=== PATIENT | female | born 1945 | race Caucasian/White ===

== ENCOUNTER → 2017-06-13 | Outpatient (CLI) | payer MEDICARE, BC ==
--- NOTE | 2017-06-13 17:30 | RAD ---
DATE: June 13, 2017 EXAM: MAMMO CHARLIE SCREEN RT HISTORY: Routine Screening, prior left mastectomy COMPARISON: April 13, 2015 TECHNIQUE: Routine digital mammographic views were obtained. This study was interpreted with the benefit of Computerized Aided Detection (CAD). The breast parenchyma is dense, which could reduce the sensitivity of mammography. Breast parenchyma level density D. FINDINGS: There is no suspicious findings. IMPRESSION: Negative examination. BI-RADS CATEGORY: 1 NEGATIVE RECOMMENDED FOLLOW-UP: 12M 12 MONTH FOLLOW-UP PQRS compliance statement: Patient information was entered into a reminder system with a target due date June 13, 2018 for the next mammogram. Mammography is a sensitive method for finding small breast cancers, but it does not detect them all and is not a substitute for careful clinical examination. A negative mammogram does not negate a clinically suspicious finding and should not result in delay in biopsying a clinically suspicious abnormality. "Our facility is accredited by the [employer] Mammography [employer]."
== END | disposition home or self-care (01) ==
LOC: MAMMO 12:29
PROVIDERS: ATTEND Nurse Practitioner Family
DX: Z12.31 Encounter for screening mammogram for malignant neoplasm of breast (principal); Z90.12 Acquired absence of left breast and nipple
CPT/HCPCS: 77063; G0202; 77067

== ENCOUNTER → 2017-09-26 | Outpatient (CLI) | payer BC, MEDICARE ==
--- NOTE | 2017-09-27 08:39 | RAD ---
Cervical spine, 3 views, 09/26/2017: History: Chronic neck pain The bony structures are demineralized. There is moderate disc space narrowing with endplate sclerosis and marginal spurring at C5-6. There is a lesser degree of disc space narrowing and spurring at C4-5 and C6-7. There are moderate degenerative changes involving scattered facet joints bilaterally. No acute fracture or subluxation is evident. No prevertebral soft tissue swelling is seen. IMPRESSION: 1. Moderate multilevel degenerative change. 2. No acute bony abnormality is detected.
--- NOTE | 2017-09-27 08:40 | RAD ---
Right shoulder, 3 views, 09/26/2017: History: Neck and right shoulder pain No fracture or dislocation is identified. There is mild degenerative change at the AC joint. The periarticular soft tissues are unremarkable. IMPRESSION: 1. Degenerative change at the right acromioclavicular articulation. 2. No acute bony abnormality is detected.
== END | disposition home or self-care (01) ==
LOC: RAD 17:07
PROVIDERS: ATTEND Nurse Practitioner Family
DX: M47.892 Other spondylosis, cervical region (principal); M48.02 Spinal stenosis, cervical region; G89.29 Other chronic pain
CPT/HCPCS: 72040; 73030

== ENCOUNTER → 2019-01-29 | Outpatient (CLI) | payer BC ==
--- NOTE | 2019-01-29 16:18 | RAD ---
EXAM: PA and Lateral Views of the Chest DATE: 01/29/2019 12:00 AM INDICATION: Positive TB test COMPARISON: No Prior FINDINGS: Projects or surgical clips are seen. The heart is not enlarged. Mediastinal and hilar contours are normal. Emphysematous changes are seen bilaterally. No lobar consolidation. No pleural effusion or pneumothorax. IMPRESSION: 1. No radiographic evidence for acute cardiopulmonary process. Electronically signed by: Teo Cross MD (01/29/2019 4:16 PM) [facility]
== END | disposition home or self-care (01) ==
LOC: PMG 09:43
PROVIDERS: ATTEND Physician Assistant
DX: J43.9 Emphysema, unspecified (principal)
CPT/HCPCS: 71046

== ENCOUNTER → 2019-07-03 | Outpatient (CLI) | payer BC, MEDICARE ==
--- NOTE | 2019-07-03 17:03 | RAD ---
DATE: 07/03/2019. EXAM: DIGITAL SCREEN RT W/CAD. HISTORY: Personal history of left breast cancer status post mastectomy. Routine right surveillance. COMPARISON: 06/13/2017. This study was interpreted with the benefit of Computerized Aided Detection (CAD). FINDINGS: Breast Density: HETERO The breast parenchyma is heterogenously dense, which could reduce sensitivity of mammography. Breast parenchyma level C.. Scattered, coarse and vascular calcifications are benign. There are no suspicious masses, microcalcifications or architectural distortion. The parenchymal pattern is stable. BI-RADS CATEGORY: 2 BENIGN FINDING(S). RECOMMENDED FOLLOW-UP: 12M 12 MONTH FOLLOW-UP. PQRS compliance statement: Patient information was entered into a reminder system with a target due date 07/03/2020 for the next mammogram. Mammography is a sensitive method for finding small breast cancers, but it does not detect them all and is not a substitute for careful clinical examination. A negative mammogram does not negate a clinically suspicious finding and should not result in delay in biopsying a clinically suspicious abnormality. "Our facility is accredited by the [employer] Mammography [employer]."
== END | disposition home or self-care (01) ==
LOC: MAMMO 08:30
PROVIDERS: ATTEND Registered Nurse
DX: Z12.31 Encounter for screening mammogram for malignant neoplasm of breast (principal); N64.89 Other specified disorders of breast; Z85.3 Personal history of malignant neoplasm of breast; Z90.12 Acquired absence of left breast and nipple
CPT/HCPCS: 77067

== ENCOUNTER → 2019-10-07 | Outpatient (CLI) | payer BC ==
--- NOTE | 2019-10-07 15:38 | RAD ---
Examination: 2 views of the right hip with frontal view of the pelvis. 3 views of the cervical spine HISTORY: Right hip pain, neck pain COMPARISON: 09/26/2017 cervical spine FINDINGS: The bilateral femoral heads within the acetabula. Moderate joint space loss identified in the bilateral hip joint likely degenerative changes. The cervical vertebral body heights are maintained. Moderate intervertebral disc height loss identified in the cervical spine most at C4-C5, C5-C6 vertebral levels. The facets are well aligned. The spinolaminar line is maintained. No evidence of prevertebral soft tissue swelling Lateral masses of C1 are aligned with C2 vertebra. The C2 dens appears intact. IMPRESSION: 1. Moderate multilevel degenerative changes cervical spine most at C5-C6 vertebral levels. 2. Moderate degenerative changes bilateral hip joints. Electronically signed by: Cody Hernandez MD (10/07/2019 3:35 PM) [id number]
== END ==
LOC: RAD 15:03
PROVIDERS: ATTEND Registered Nurse
DX: M47.812 Spondylosis without myelopathy or radiculopathy, cervical region (principal); M16.0 Bilateral primary osteoarthritis of hip
CPT/HCPCS: 72040; 73502

== ENCOUNTER → 2021-02-16 | Outpatient (CLI) | payer BC ==
--- NOTE | 2021-02-17 15:07 | RAD ---
EXAM: Unilateral digital diagnostic mammography, right. HISTORY: Personal history of left breast cancer status post mastectomy. Routine right surveillance. TECHNIQUE: Bilateral full field digital images were obtained in CC and MLO projections. Computer-aide d detection was applied. COMPARISON: 07/03/2019. COMPOSITION: C. The breasts are heterogeneously dense, which may obscure small masses. FINDINGS: There are no suspicious masses, microcalcifications or architectural distortion. The parenc hymal pattern is stable. Scattered, coarse and vascular calcifications are benign. BI-RADS CATEGORY 2: Benign. RECOMMENDATION: 1. Routine screening mammography in one year. If mammography demonstrates dense breast tissue (heterogenously dense or extremely dense, category C or D), which could hide abnormalities, and if other risk factors for breast cancer have been identifi ed, supplemental screening tests that may be suggested by the ordering physician may be of benefit. D ense breast tissue, in and of itself, is a relatively common condition. Therefore, this information i s not provided to cause undue concern, but rather to raise awareness and to promote discussion with t he referring physician regarding the presence of other risk factors, in addition to dense breast tiss ue. The results of this mammography examination is provided to the patient and referring physician. T he patient should contact their referring physician if any questions or concerns exist regarding this report. PQRS compliance statement - Patient information was entered into a reminder system with a target due date for the next mammogram. "Our facility is accredited by the [employer] Mammography [employer]." Electronically signed by: Janice Zhao MD (02/17/2021 3:04 PM) [id number]
== END ==
LOC: MAMMO 15:17
PROVIDERS: ATTEND Physician Assistant Medical
DX: Z12.31 Encounter for screening mammogram for malignant neoplasm of breast (principal); Z85.3 Personal history of malignant neoplasm of breast
CPT/HCPCS: 77067